=== PATIENT | male | born 1980 | race Hispanic/Latino ===

== ENCOUNTER 2020-08-09 11:52 | Outpatient (CLI) | payer SELFPAY ==
--- NOTE | ~2020-08-09 | XR_ITS ---
XR lumbar spine 2-3V DATE: 08/09/2020 12:02 INDICATION: Sciatica TECHNIQUE: AP, lateral and coned lateral lumbosacral views COMPARISON: 10/19/2012 CT and lumbar spine FINDINGS: Normal alignment of the lumbar spine with the exception of minimal retrolisthesis at L5-S1. There is mild degenerative disc disease at L3-4, L4-5 and L5-S1 primarily. No fracture or bone destruction is evident. Mild chronic anterior wedging of L1, stable since 10/20/19 13. The included lower thoracic and lumbar pedicles are intact. The sacroiliac joints are normal. Surgical clips, right upper quadrant, consistent with cholecystectomy IMPRESSION: Mild mid and lower lumbar degenerative disc disease Reviewed, dictated and finalized at location A.
== END 2020-08-09 11:53 | disposition home or self-care (01) ==
PROVIDERS: PCP Family Medicine; Visit Provider Family Medicine
DX: M54.30 Sciatica, unspecified side (principal); M51.36 Other intervertebral disc degeneration, lumbar region
CPT/HCPCS: 72100

== ENCOUNTER 2022-07-10 07:43 | Outpatient (CLI) | payer OTHER, SELFPAY ==
--- NOTE | ~2022-07-10 | MR_ITS ---
EXAMINATION: MR ankle RT wo con DATE: 07/10/2022 08:19 INDICATION: Right ankle sprain TECHNIQUE: Magnetic resonance imaging (MRI) of the right ankle was performed without intravenous cont rast. Sequences included sagittal, coronal, and axial proton-density weighted fast spin echo without and with fat saturation. COMPARISON: None. FINDINGS: Medial ankle ligaments: There is mild thickening and increased signal of the anterior half of the superficial deltoid ligamen t without a discrete discontinuity consistent with relatively recent moderate grade sprain. The more posterior superficial deltoid ligament, the deep deltoid ligament as well as the spring ligament are normal. Lateral ankle ligaments: The anterior and posterior inferior tibiofibular ligaments are normal. The anterior talofibular, calc aneofibular and posterior talofibular ligaments are normal. Tendons: Achilles tendon is normal. The peroneus longus and brevis tendons are normal. The tibialis anterior a nd extensor hallucis longus and extensor digitorum longus tendons are normal. The tibialis posterior, flexor digitorum longus and flexor hallucis longus tendons are normal. Plantar fascia: Plantar aponeurosis is normal. Bones/other: Bone alignment is normal. No fracture or pathologic marrow replacing process. Mild osteoarthritis wit h nonuniform joint space narrowing at the tibiotalar, talonavicular and second-fourth tarsal metatars al joints. There is mild chondral surface regularity along the medial side of the tibiotalar articula tion. There is thickening and mild increased signal of the bifurcate ligament as well as of the dorsa l ligaments at the talonavicular and lateral naviculocuneiform articulations consistent with addition al moderate grade sprains. Fluid: Physiologic amount fluid in the joint spaces. There is mild feathery muscular edema involving the ext ensor digitorum brevis consistent with low-grade strain. IMPRESSION: 1. Moderate grade sprains of the anterior superficial deltoid ligament, the bifurcate ligament and th e dorsal ligaments at the talonavicular and lateral naviculocuneiform articulations. 2. Low-grade strain of the extensor digitorum brevis. 3. Mild polyarticular osteoarthritis. Reviewed, dictated and finalized at location L. IMPRESSION: 1. Moderate grade sprains of the anterior superficial deltoid ligament, the bif urcate ligament and the dorsal ligaments at the talonavicular and lateral navic ulocuneiform articulations. 2. Low-grade strain of the extensor digitorum brevis. 3. Mild polyarticular osteoarthritis.
== END 2022-07-10 07:44 ==
LOC: MICIMG 07:44
PROVIDERS: PCP Family Medicine; Visit Provider Podiatrist Foot & Ankle Surgery
DX: S93.401A Sprain of unspecified ligament of right ankle, initial encounter (principal); X58.XXXA Exposure to other specified factors, initial encounter; M19.071 Primary osteoarthritis, right ankle and foot
CPT/HCPCS: 73721

== ENCOUNTER 2023-08-20 12:31 | Outpatient (CLI) | payer BC, SELFPAY ==
--- NOTE | 2023-08-20 14:10 | NEURO_ITS ---
Impression: # Complains of pain and numbness of hands. # Bilateral Carpal Tunnel Syndrome, sensory more than motor, right more than left. # No ulnar neuropathy. # Normal needle/EMG exam. Nerve Conduction Studies Anti Sensory Summary Table Stim Site NR Peak (ms) P-T Amp (?V) Site1 Site2 Delta-P (ms) Dist (cm) Dejon (m/s) Left Median Anti Sensory (2-3nd Digit) Wrist 3.6 20.7 Wrist 2-3nd Digit 3.6 14.0 39 Wrist 3.9 10.5 Wrist 2-3nd Digit 3.6 14.0 39 Right Median Anti Sensory (2-3nd Digit) Wrist 5.1 14.8 Wrist 2-3nd Digit 5.1 14.0 27 Wrist 5.5 17.5 Wrist 2-3nd Digit 5.1 14.0 27 Left Radial Anti Sensory (Base 1st Digit) Wrist 2.1 26.1 Wrist Base 1st Digit 2.1 0.0 Right Radial Anti Sensory (Base 1st Digit) Wrist 2.3 14.7 Wrist Base 1st Digit 2.3 0.0 Left Ulnar Anti Sensory (5th Digit) Wrist 2.3 14.5 Wrist 5th Digit 2.3 14.0 61 Right Ulnar Anti Sensory (5th Digit) Wrist 2.5 28.3 Wrist 5th Digit 2.5 14.0 56 Motor Summary Table Stim Site NR Onset (ms) O-P Amp (mV) Site1 Site2 Delta-0 (ms) Dist (cm) Dejon (m/s) Left Median Motor (Abd Poll Brev) Wrist 3.6 4.0 Elbow Wrist 5.5 29.0 53 Elbow 9.1 1.9 Right Median Motor (Abd Poll Brev) Wrist 3.4 3.7 Elbow Wrist 5.4 31.0 57 Elbow 8.8 1.8 Left Ulnar Motor (Abd Dig Minimi) Wrist 2.3 6.4 A Elbow Wrist 5.4 32.0 59 A Elbow 7.7 5.8 Right Ulnar Motor (Abd Dig Minimi) Wrist 2.2 8.1 A Elbow Wrist 5.3 31.0 58 A Elbow 7.5 6.5 F Wave Studies NR F-Lat (ms) L-R F-Lat (ms) Left Median (Mrkrs) (Abd Poll Brev) 30.63 1.03 Right Median (Mrkrs) (Abd Poll Brev) 31.65 1.03 Left Ulnar (Mrkrs) (Abd Dig Min) 28.96 0.18 Right Ulnar (Mrkrs) (Abd Dig Min) 29.14 0.18 EMG Side Muscle Nerve Root Ins Act Fibs Amp Dur Recrt Comment Right 1stDorInt Ulnar C8-T1 Nml Nml Nml Nml Nml Right Ext Indicis Radial (Post Int) C7-8 Nml Nml Nml Nml Nml Right Ext Digitorum Radial (Post Int) C7-8 Nml Nml Nml Nml Nml Right BrachioRad Radial C5-6 Nml Nml Nml Nml Nml Right PronatorTeres Median C6-7 Nml Nml Nml Nml Nml Right Abd Poll Brev Median C8-T1 Nml Nml Nml Nml Nml Right ABD Dig Min Ulnar C8-T1 Nml Nml Nml Nml Nml Left 1stDorInt Ulnar C8-T1 Nml Nml Nml Nml Nml Left Ext Indicis Radial (Post Int) C7-8 Nml Nml Nml Nml Nml Left Ext Digitorum Radial (Post Int) C7-8 Nml Nml Nml Nml Nml Left BrachioRad Radial C5-6 Nml Nml Nml Nml Nml Left PronatorTeres Median C6-7 Nml Nml Nml Nml Nml Left Abd Poll Brev Median C8-T1 Nml Nml Nml Nml Nml Left ABD Dig Min Ulnar C8-T1 Nml Nml Nml Nml Nml MTDD
== END 2023-08-20 12:32 | disposition home or self-care (01) ==
LOC: ANHNEURO 12:33
PROVIDERS: PCP Family Medicine; Visit Provider Physician Assistant
DX: R20.0 Anesthesia of skin (principal); R20.2 Paresthesia of skin; G56.03 Carpal tunnel syndrome, bilateral upper limbs
CPT/HCPCS: 95886; 95911

== ENCOUNTER 2023-09-25 18:19 | Emergency (ER) | payer BC, SELFPAY ==
--- NOTE | ~2023-09-25 | CT_ITS ---
EXAMINATION: CT lumbar spine wo con DATE: 09/25/2023 19:03 INDICATION: back pain, radiculopathy . TECHNIQUE: Computed tomography (CT) of the lumbar spine was performed without intravenous contrast. A utomated exposure control and iterative reconstruction technique were employed. The dose-length produ ct was 883.60 mGy-cm. COMPARISON: 10/19/2012; x-ray L-spine 08/09/2020. FINDINGS: 5 nonrib-bearing lumbar-type vertebral bodies. Pedicles intact. Normal vertebral body align ment. Vertebral body heights preserved. Multilevel mild marginal osteophytosis. Mild loss of disc hei ght at L4-5 and L5-S1, with mild diffuse disc bulges at these levels. 3 mm central protrusion/extrusi on inferiorly off the L5-S1 disc. Moderate bilateral neural foraminal narrowing at L4-5. Neural ingrid inal narrowing at L5-S1, moderate on the right and severe on the left. No severe central canal narrow ing. Mild multilevel facet arthropathy IMPRESSION: No acute fracture or traumatic malalignment in the lumbar spine. No severe central canal narrowing. Severe left neural foraminal narrowing at L5-S1 secondary to degenerative disc change. Moderate neura l foraminal narrowing bilaterally at L4-5 and on the right at L5-S1. Mild degenerative disc disease at L4-5 and L5-S1. 3 mm central protrusion/extrusion at L5-S1. Reviewed, dictated and finalized at location K. IMPRESSION: No acute fracture or traumatic malalignment in the lumbar spine. No severe central canal narrowing. Severe left neural foraminal narrowing at L5-S1 secondary to degenerative disc change. Moderate neural foraminal narrowing bilaterally at L4-5 and on the righ t at L5-S1. Mild degenerative disc disease at L4-5 and L5-S1. 3 mm central protrusion/extru donald at L5-S1.
[2023-09-25 18:21] VITALS: BP 157/99; PULSE 112; RESP 18; TEMP 36.3; O2SAT 97
--- NOTE | 2023-09-25 18:37 | ED.BACK ---
HPI - Back Pain/Injury General Chief Complaint: Back Pain/Injury Stated Complaint: back pain Time Seen by Provider: 09/25/23 18:20 History of Present Illness HPI Narrative: 43-year-old male presents to the emergency department for back pain for about a week and a half. Patient states the pain is throughout his low back. He describes it as a dull pain when he is at rest but it is sharp and stabbing when he is moving. States the pain radiates down the lateral aspect of both of his hips a and to the front of his thighs just above the knees. States it changes between each leg but right now the radiating pain is in his left leg. States the pain was somewhat improving after taking [id number] Aleve and icing, however the past day and half a became worse again which prompted him to come to the ED for further evaluation. He denies injury or trauma to his back or history of similar back pain. He denies numbness in his groin, urinary or bowel incontinence, urinary retention, fever, surgeries or procedures to his back, use of immunosuppressants, dysuria or hematuria, history of kidney stones. He does state that he is very active and plays golf and runs regularly. PMHx of low testosterone and B12 deficiency. Related Data Allergies Allergy/AdvReac Type Severity Reaction Status Date / Time No Known Allergies Allergy Unverified 07/11/23 11:35 Review of Systems Review of Systems: CONSTITUTIONAL: Denies fever, chills, or sweats. EYES: Denies visual changes, redness, or discharge. ENT: Denies rhinorrhea, congestion, sore throat, or otalgia. CARDIOVASCULAR: Denies chest pain, palpitations, or edema. RESPIRATORY: Denies cough or dyspnea. GASTROINTESTINAL: Denies abdominal pain, nausea, vomiting, or diarrhea. GENITOURINARY: Denies dysuria or hematuria. SKIN: Denies rash or itching. MUSCULOSKELETAL: See HPI NEUROLOGIC: Denies headache, numbness, or weakness. PSYCHIATRIC: Denies anxiety or depression. [facility] Family History Family History Other Diabetes mellitus Hypertension Social History Social History Social History: Smoking status: Smoker, status unknown Smokeless tobacco user: chewing tobacco Second hand tobacco smoke exposure: No Additional smoking assessment comments: CHEWS FOR 23 YRS Alcohol intake: current Drinks per week: 10 Substance use: never Substance use type: does not use Do You Feel Safe in your Home?: Yes Lack of Transportation: No Lack of Food: Never True Current Housing: I Have Housing Concerned About Future Housing: No Difficulty Paying Gas/Electric Bills: No Difficulty Paying for Meds: No Currently Unemployed: No Education: Don't Know Difficulty w/ Childcare or Family Care: No Living arrangements: with family Occupation/Education: occupation Gender identity (if verbalized by the patient): Male Sexual Orientation (if Verbalized by the Patient): Straight or Heterosexual Spiritual care concerns: No Exam Narrative: GENERAL: Well-appearing, well-nourished, and in no acute distress. HEAD: Normocephalic, atraumatic. NECK: Supple. BACK: No midline thoracic spinous tenderness, step-offs or deformities. Tenderness to the lumbar spine without step-offs, deformities. No overlying skin changes. Tenderness diffusely to the low back and paraspinous muscles without overlying skin changes. CHEST: Clear to auscultation. No respiratory distress. HEART: Regular rate and rhythm. No murmur heard. Normal peripheral pulses. ABDOMEN: Soft, nontender, nondistended, normal active bowel sounds. No CVA tenderness. EXTREMITIES: Normal range of motion. No edema. SKIN: Warm, dry, no rash. NEURO: No focal deficits. Alert and oriented x3. Dorsiflexion, plantar flexion, knee flexion and extension, hip flexion and extension 5/5 bilaterally. Sensation intact througho
[2023-09-25] MEDS: KETOROLAC 30 MG/ML VIAL (*BKC) IM (19:10)
[2023-09-25] MEDS: CYCLOBENZAPRINE HCL 10 MG TABLET PO (19:10)
[2023-09-25] MEDS: LIDOCAINE 5% PATCH 1 PATCH TRANSDERM (19:10)
[2023-09-25] MEDS: HYDROcodone/acetaminophen (*CRX) 5-325 MG TABLET 1 TAB PO (19:56)
[2023-09-25] MEDS: dexAMETHasone SOD PHOS INJ 10 MG/ML 1 ML VIAL IM (19:56)
== END 2023-09-25 20:05 | disposition home or self-care (01) ==
PROVIDERS: Emergency Provider Physician Assistant; PCP Family Medicine
DX: M54.16 Radiculopathy, lumbar region (principal); F17.220 Nicotine dependence, chewing tobacco, uncomplicated
CPT/HCPCS: 72131; 96372; 99284; A9270; J1100; J1885

== ENCOUNTER 2025-02-03 02:04 | Day surgery (SDC) | payer BC, SELFPAY ==
[2025-01-25 13:52] VITALS: BMI 37.6
--- NOTE | 2025-01-25 13:59 | PC.NURSE ---
[facility] has started construction of its new state of the art ER which will open Spring 2026. With this, we anticipate parking may be a challenge for some our surgical patients and families. Parking spaces are limited but are available for all Surgical, obstetrics, and ER patients sharing this lot. If you arrive and find you are having a hard time finding a parking space, please note that we understand the challenges, please drive around the hospital and park near Hospital Entrance 1. When you enter this entrance, you can ask a volunteer to direct or take you back to the surgical waiting area to check in. We appreciate everyone?s understanding of these expected challenges while we build for your future. Report to the Outpatient Waiting Room, entrance under the green pavilion located off [address], at time _0600_ on date _[id number]_. Planned Procedure Time: _0730_.? Time changes happen often and if your time is changed the preop area will call you the afternoon before. - You and your visitor will be asked to self-screen and do not enter if you have any COVID symptoms. Please call surgeon if you need to reschedule. - A mask is optional within the hospital at this time. - No food or drink from midnight until time of surgery and no smoking, or chewing tobacco (or any form of nicotine). No chewing gum, candy or mints. Take only the following medications with a SIP of water on the morning of surgery: ___None DO NOT STOP ANY OF YOUR OTHER PRESCRIPTION MEDICATIONS PRIOR TO SURGERY EXCEPT THE FOLLOWING Hold all vitamins and supplements for 3 days per anesthesiologist. Medications to discontinue per physician Date to take last dose Please no make-up, nail finnish, hairspray, perfume, deodorant, or body powder the day of surgery.? No jewelry (including any body piercings) or valuables the day of surgery, leave them at home.? Please take a shower or bath the night before, or the morning of, surgery with an antibacterial soap.? Wear comfortable, loose fitting clothing.? - Jewelry must be removed prior to entering the operating room.? Rings and piercings that are not removed may be cut off. - The hospital will not accept responsibility for valuables.? - Please leave all valuables, including medications, at home the day of surgery. If you are going home after surgery, a licensed armored car guard and driver must drive you home.? - NO public transportation without another adult if you receive anesthesia. - We recommend that an adult stay with you for 24 hours following discharge. - We also recommend that you do not drive, make important decision, drink alcoholic beverages, or take any drugs that were not prescribed by your health care provider for at least 24 hours after your discharge time. Follow any additional instructions given to you from your surgeon. Telephone instructions given to __Dan__and asked if any additional questions and then verbalized understanding. Patient advised to call surgeon office or pre surgery nurse liaison [phone] if any additional questions.
--- OUTSIDE RECORDS SUMMARY | 2025-02-03 02:08 | XMS_ITS | Clinical Summary ---
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 Name Role Phone None, Provider Primary Care Provider Unavaila ble Allergies No known active allergies Encounters Date Type Department Care Team Description 12/16/2024 10:25 PM CDT - 12/17/2024 1:16 AM CDT Emergency [facility] [place] [address] Kristi Heath PA Chest Pain; Shortness Of Breath Discharge Disposition: Home or Self Care (Routine Discharge) 12/16/2024 Travel from Last 3 Months Social History Tobacco Use Types Packs/Day Years Used Date Smoking Tobacco: Never Smokeless Tobacco: Current Chew Tobacco Cessation:Ready to Q uit: Not Asked; Counseling Given: Not Answered Alcohol Use Standard Drinks/Week Comments Yes 0 (1 standard drink = 0.6 oz pur e alcohol) socially Sex and Gender Information Value Date Recorded Sex Assigned at Male 12/16/2024 9:31 PM CDT Legal Sex Male 7:30 PM CDT Gender Identity Not on file Sexual Orientation Not on file Last Filed Vital Signs Vital Sign Reading Time Taken Comments Blood Pressure 169/95 12/16/2024 9:17 PM CDT Pulse 62 12/16/2024 9:17 PM CDT Temperature 36.3 C (97.3 F) 12/16/2024 9:17 PM CDT Respiratory Rate 18 12/16/2024 9:17 PM CDT Oxygen Saturation 96% 12/16/2024 9:17 PM CDT Inhaled Oxygen Concentration - - Weight 108.9 kg (240 lb) 12/16/2024 9:17 PM CDT Height 172.7 cm (5' 8) 12/16/2024 9:17 PM CDT Body Mass Index 36.49 12/16/2024 9:17 PM CDT Plan of Treatment Health Maintenance Due Date Last Done Comments Annual Physical 07/10/1983 Hepatitis C 1998 DTaP, Tdap and Td Vaccines ( 1 - Tdap) 07/10/1999 Hepatitis B Vaccines (1 of 3 - 19+ 3-dose series) 07/10/1999 HPV Vaccines (1 - 3-dose SCD M series) 07/10/2007 COVID-19 Vaccine ( - 2024-2 6 season) 2024 08/30/2020, 08/09/2020 Influenza Adult (#1) 2025 Meningococcal B Vaccine Aged Out No l onger eligible based on patient's age to complete this topic Meningococcal Vaccine Aged Out No olga deepthi eligible based on patient's age to complete this topic Pneumococcal Vaccine: Pediatrics (0 to 5 Years) and At-Risk Patients (6 to 49 Years) Aged Out No longer eligible b ased on patient's age to complete this topic RSV Immunizations Under 20 Months Aged Out No longer eligible b ased on patient's age to complete this topic Procedures Procedure Name Priority Date/Time Associated Diagnosis Comments TROPONIN, QUANT STAT 12/16/2024 11:39 PM CDT ECG 12-LEAD STAT 12/16/2024 11:33 PM CDT XR CHEST PORTABLE STAT 12/16/2024 9:4 2 PM CDT LIPASE STAT 12/16/2024 9:28 PM CDT TROPONIN, QUANT STAT 12/16/2024 9:28 PM CDT COMPREHENSIVE METABOLIC PANEL STAT 12/16/2024 9:28 PM CDT CBC W/DIFF AUTOMATED STAT 12/16/2024 9:28 PM CDT ECG 12-LEAD STAT 12/16/2024 9:23 PM CDT from Last 3 Months Results * TROPONIN, QUANT (12/16/2024 11:39 PM CDT) Only the most recent of2 resultswithin the time period is included. TROPONIN I HIGH SENSITIVITY 3 <79 ng/L 12/17/2024 12:[address] [facility] Comment: HIGH DOSES OF BIOTIN, TROPONIN-SPECIFIC AUTOANTIBODIES, AND ANTIBODY THERAPY CONTAINING HAMA MAY INTERFERE WITH THIS TEST RESULT. CORRELATION TO CLINICAL HISTORY AND PRESENTATION RECOMMENDED. 12/16/2024 11:3 9 PM CDT us [facility] Final Result [facility] [address] [place] [address], [place] [phone] * ECG 12 lead (12/16/2024 11:33 PM CDT) Only the most recent of2 resultswithin the time period is included. 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 : 1980 Requested By: KRISTI HEATH Order Number: [id number] Reading MD: Arlin Bobby Measurements Intervals Eden Rate: 59 P: 45 PA: 198 QRS: -8 QRSD: 92 T: 17 QT: 386 QTc: 382 Interpretive Statements SINUS BRADYCARDIA Procedure Note Arlin Bobby MD - 12/17/2024 [address] [place] Test Date: 2024-12-16 Pat Name: HUAN POLO Department: 41 Room: JENNY Gender: Male 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 No acute cardiopulmonary process is identified. Ordered By: KRISTI HEATH Interpreted By: Ted Scott MD, 12/16/2024 10:07 PM Narrative 12/16/2024 10:08 PM CDT [address] [address] PROCEDURE: XR CHEST PORTABLE. 12/16/2024 9:22 PM. TECHNIQUE: A single view of the chest (AP or PA) was performed. HISTORY: Chest pain. COMPARISON: PA and lateral chest radiograph, 06/27/2015. FINDINGS: Support Devices: None. Cardiac Silhouette/Mediastinum/Alley: The cardiac, mediastinal, and hilar contours are unchanged in appearance. Lungs/Pleural Spaces: No focal consolidation. The pleural spaces are clear Chest Wall/Diaphragm/Upper Abdomen: The thoracic musculoskeletal structures and the upper abdomen are unchanged in appearance. Procedure Note Ted Scott MD - 12/16/2024 [facility] [address] [place], [place] [address] PROCEDURE: XR CHEST PORTABLE. 12/16/2024 9:22 PM. TECHNIQUE: A single view of the chest (AP or PA) was performed. HISTORY: Chest pain. COMPARISON: PA and lateral chest radiograph, 06/27/2015. FINDINGS: Support Devices: None. Cardiac Silhouette/Mediastinum/Alley: The cardiac, mediastinal, and hilarcontours are unchanged in appearance. Lungs/Pleural Spaces: No focal consolidation. The pleural spaces areclear Chest Wall/Diaphragm/Upper Abdomen: The thoracic musculoskeletalstructures and the upper abdomen are unchanged in appearance. IMPRESSION: 1. No acute cardiopulmonary process is identified. Ordered By: KRISTI HEATH Interpreted By: Ted Scott MD, 12/16/2024 10:07 PM Kristi Heath PA GENERAL IMAGING Final Result * (ABNORMAL) COMPREHENSIVE METABOLIC PANEL (12/16/2024 9:28 PM CDT) GLUCOSE 97 70 - 99 MG/DL 12/16/2024 10:[address] [facility] BUN 13 7 - 18 MG/DL 12/16/2024 10:[address] [facility] CREATININE S/P/B 1.36(H) 0.7 - 1.3 MG/DL 12/16/2024 10:[address] [facility] SODIUM S/P/B 138 136 - 145 MMOL/L 12/16/2024 10:07 [address] [facility] POTASSIUM S/P/B 3.8 3.5 - 5.1 MMOL/L 12/16/2024 10:[address] [facility] CHLORIDE S/P/B 104 97 - 115 MMOL/L 12/16/2024 10:07 PM [address] [facility] CO2 27.4 21 - 32 MMOL/L 12/16/2024 10:[address] [facility] CALCIUM S/P/B 9.9 8.5 - 10.1 MG/DL 12/16/2024 10:[address] [facility] BILIRUBIN TOTAL S/P/B 0.5 0.2 - 1.2 MG/DL 12/16/2024 10:07 PM [address] [facility] Comment: THIS ASSAY IS NOT RECOMMENDED FOR PATIENTS UNDERGOING TREATMENT WITH ELTROMBOPAG DUE TO THE POTENTIAL FOR FALSELY ELEVATED RESULTS. TOTAL PROTEIN S/P/B 7.7 6.4 - 8.2 G/DL 12/16/2024 10:[address] [facility] ALBUMIN S/P/B 4.1 3.4 - 5.0 G/DL 12/16/2024 10:[address] [facility] AST 33 15 - 37 U/L 12/16/2024 10:[address] [facility] ALT 66(H) 16 - 60 U/L 12/16/2024 10:[address] [facility] ALKALINE PHOSPHATASE S/P/B 47(L) 50 - 136 U/L 12/16/2024 10:[address] [facility] ANION GAP 6.6 2 - 10 MMOL/L 12/16/2024 10:[address] [facility] BUN CREATININE RATIO 9.6 6 - 26 12/16/2024 10:[address] [facility] A/G RATIO 1.1 1.0 - 2.0 RATIO 12/16/2024 10:[address] [facility] GFR ESTIMATE 66(L) >90 ML/MIN/1.7 3 M2 12/16/2024 10:07 PM [address] [facility] Comment: NOTE: eGFR is not calculated for patients <18 years of age or gender unknown. This is an estimated GFR calculation using the new CKD EPI creatinine equation without race and so does not require a correction factor for race. This estimated GFR should not be used for calculating drug doses. 12/16/2024 9:28 PM CDT [facility] Final Result [facility] [address] [place] [address], * (ABNORMAL) CBC W/DIFF AUTOMATED (12/16/2024 9:28 PM CDT) WBC 10.24 4.5 - 11.0 x10'3/uL 12/16/2024 9:47 PM [address] [facility] RBC 5.65 4.70 - 6.10 x10'6/uL 12/16/2024 9:47 PM CDT [facility] HGB 17.4 14.0 - 18.0 G/DL 12/16/2024 9:47 PM CDT [facility] HCT 47.9 43.0 - 54.0 % 12/16/2024 9:47 PM [address] [facility] MCV 84.8 80.0 - 94.0 FL 12/16/2024 9:47 PM [address] [facility] MCH 30.8 27.0 - 31.0 PG 12/16/2024 9:47 PM CD[address] [facility] MCHC 36.3(H) 32.0 - 36.0 G/DL 12/16/2024 9:47 PM [address] [facility] RDW 12.4 11.5 - 14.5 % 12/16/2024 9:[address] [facility] PLT 204 130 - 400 x10'3/uL 12/16/2024 9:47 PM [address] [facility] MPV 9.1(L) 9.3 - 12.2 FL 12/16/2024 9:47 [address] [facility] DIFFERENTIAL TYPE AUTOMATED DIFFERENTIAL 12/16/2024 9:47 PM CDT [facility] NEUTROPHILS % 63.5 % 12/16/2024 9:47 [address] [facility] LYMPHOCYTES % 26.8 % 12/16/2024 9:47 PM [address] [facility] MONOCYTES % 7.6 % 12/16/2024 9:47 PM [address]T [facility] EOSINOPHILS 1.2 % 12/16/2024 9:47 PM [address] [facility] BASOPHILS 0.5 % 12/16/2024 9:47 [address] [facility] IMMATURE GRANS % 0.4 % 12/17/19 9:[address] [facility] ABS. NEUTROPHILS 6.51 1.80 - 7.70 x10'3/uL 12/16/2024 9:[address] [facility] ABS. LYMPHOCYTES 2.74 1.00 - 4.80 x10'3/uL 12/16/2024 9:47 [address] [facility] ABS. MONOCYTES 0.78 0.30 - 0.82 x10'3/uL 12/16/2024 9:47 PM [address] [facility] ABS. EOSINOPHILS 0.12 0.04 - 0.54 x10'3/uL 12/16/2024 9:47 PM [address] [facility] ABS. BASOPHILS 0.05 0.01 - 0.08 x10'3/uL 12/16/2024 9:47 PM [address] [facility] ABS. IMMATURE GRANULOCYTES 0.04 0.00 - 0.49 x10'3/uL 12/16/2024 9:[address] [facility] 12/16/2024 9:28 PM CDT [facility] Final Result [facility] [address] [place] [address], [place] [phone] * LIPASE (12/16/2024 9:28 PM CDT) LIPASE 39 13 - 75 UNITS/L 12/16/2024 10:[address] [facility] 12/16/2024 9:28 PM CDT [facility] Final Result Performing Organization Address [facility] Co de Phone Number [facility] [address] [place] [address], [place] [phone] from Last 3 Months Insurance Care Teams Senior Mechanical Development Engineer Relationship Specialty Start Date End Date None, Provider, PCP - General UNKNOWN PHYSICIAN SPECIALTY 12/16/24
--- OUTSIDE RECORDS SUMMARY | 2025-02-03 02:08 | XMS_ITS | Data Portability ---
Author Organization [employer], [facility] Address [address] [address] Assessment No assessment recorded. Plan of Treatment Reminders Order Date Submit Date Provider Last Modified By Organization Details Last Modified Time Details Appointments None recorded. Lab PSA, serum or plasma - Screening PSA 2018 019 [email or web address] Not available 9 05:39:48 CBC w/ auto diff 2018 019 [email or web address] Not available 9 05:39:48 vitamin D, 25-hydroxy, total, serum 2018 019 [email or web address] Not available 9 05:39:48 testosteron e, free, serum 2018 019 [email or web address] Not available 9 05:39:48 testosteron e, total, serum 2018 019 [email or web address] Not available 9 05:39:48 Referral None recorded. Procedures None recorded. Surgeries None recorded. Imaging XR, shoulder 2018 019 [email or web address] Not available 9 05:39:48 US, upper extremity, nonvascular 2018 019 [email or web address] Not available 9 16:18:58 Medication Orders cephalexin 500 mg capsule 2018 019 [email or web address] Not available 9 05:39:48 diazepam 10 mg tablet 2018 019 [email or web address] Not available 9 05:39:48 Patient TargetsNo targets recorded. Patient Instructions Encounter Date Encounter Id Patient Instructions Last Modified By Organization Details Last Modified Time 12/10/2018 [id number] shoulder pain: c are instructions Not available 12/11/2018 05:39:48 After review of radiographic and examination findings, we discussed treatment options available. These included corticosteroid injection,bracing, observation, surgical referral, physical therapy, pain management, and/or stem cell treatment. The patient is definitely interested in non-surgical alternatives. If they choose to undergo stem cell biologic treatment, it is understood that it is considered investigational and off label use of the product by FDA, that it is not a covered benefit by insurance, and that there is no guarantee of symptom improvement. We reviewed the stem cell treatment and depth. Information packet was given to and reviewed with the patient. All questions were answered related to the procedure, post procedure expectations, and cost associated with treatment. We also discussed that sometimes more than one biologic treatment is required to attain desired efficacy. If opting to undergo biologic treatment, an order was given for laboratory studies to be completed. They will call our office if they desire to schedule an appointment for treatment or review any of the other treatment options discussed. Patient will also RTC or call for any worsening, questions or concerns prn. We did discuss proceeding with an MRI examination with contrast to the shoulder. He is interested in proceeding with biologic treatment and bypassing the MRI examination. Not available 12/15/2018 05:25:52 Reason for Referral None Reported. Problems No Known Problems Medical Equipment None Reported. Allergies No known drug allergies Medications Name Sig Start Date Stop Date Status Note LastModified by Organization Details LastModified Time amoxicillin 500 mg capsule active Not Available Not Available Not Available cephalexin 500 mg capsule Take 4 capsules (total of 2g) po one hour prior to procedure. One time dose. 2018 active Not Available Not Available Not Avai lable mupirocin 2 % topical ointment active Not Available Not Available Not Available diazepam 10 mg tablet Take 1 tablet(s) 30 mins PRIOR to appointment PRN and repeat as directed by physician. 2018 active Not Available Not Available Not Avai lable fluticasone propionate 50 mcg/actuatio n nasal spray,suspen donald active Not Available Not Available Not Available Vitals Date Recorded Body height Body mass index (BMI) Body weight Heart rate Systolic And Diastolic Provider Name and Address Organization Details Last Updated DateTime 12/10/2018 172.72 cm 30.4 kg/m2 59868.47 g 76 /min 137/67 mm[Hg] José Miguel Brown [facility] [employer] 12/10/2018 15:29:02 Social History Question Answer Notes LastModified by [employer] Details LastModified Time Tobacco Smoking Status Never Smoker José Miguel Brown jamil [facility] 12/10/2018 15:29:24 Live Alone Or With Others? With Others [email or web address] Information not available 12/10/2018 Marital Status Informatio n not available 12/10/2018 What Types Of Sporting Activities Do You Participate In? Lifting Weights And Baseball [email or web address] Information not available 12/10/2018 General Stress Level Medium [email or web address] Information not available 12/10/2018 Sex: Unknown Functional Status Question Answer Note LastModified by [employer] Details LastModified Time What is your level of alcohol consumption? 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 Moderate [email or web address] Information not available 12/10/2018 Mental Status None recorded. Family History Relationship Description Onset Age of this Age Resolved Age Notes LastModified by Organization Details LastModified Time Father No current problems or disability [email or web address] Not available 12/10 15:29:18 Mother No current problems or disability [email or web address] Not available 12/10 15:29:18 Medical History Condition Response HIV or AIDS N Coronary Artery Disease N Gout N Kidney Stones N Hyperthyroidism N Head Trauma/Injury N Hernia N Hypothyroidism N Lung Disease N Blood Clots N COPD N Depression N Pacemaker N Anxiety Disorder N Arthritis N Cancer N Stroke N Leg or Foot Ulcers N Neck Injury N High Cholesterol N Liver Disease N Rheumatoid Arthritis N Fibromyalgia N Headaches N Kidney Disease N Heart Problems N Migraines N Thyroid Problems N Anemia N Multiple Sclerosis N Tendon Tear N Ulcers N Heart Attack (PA) N Diabetes N Bleeding Disorder N Seizures/Epilepsy N Tuberculosis N Urinary Tract Infection N Back Problems N Diverticulitis N Asthma N Lupus N Peripheral Vascular Disease N Sleep Disorder N GERD/Reflux N Hepatitis N Aneurysm N Heart Disease N Pulmonary Embolism N Hypertension N Osteoporosis N Past Encounters Encounter ID Performer Location Encounter Start Date Encounter Closed Date Diagnosis/Indication Diagnosis SNOMED-CT Code Diagnosis ICD10 Code Diagnosis IMO Codes Diagnosis Note [id number] aCrol Argueta MD [facility] 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 Malaise and fatigue 2717 37875 R53.83 Z12.5 M89.9 M94.9 R53.81 Antibiotic prophylaxis indicated 654611326 Z78.9 Anxiety 44182068 F41.9 Glenoid labrum tear 2023 24653 S43.431A Partial th ickness rotator cuff tear 403136676 M75.101 Health Concerns Section Related Observation LastModified by Organization [employer] LastModified Time None Recorded Concern Status LastModified by Organization Details LastModified Time None Recorded Advance Directives Directive None Recorded Payers Insurance Date Sequence Insurance Name Policy Number Policy Arteaga Covered Member ID Arteaga Member ID Guarantor Name 12/15/2018 1 [employer] (PPO) [id number] Huan Wynne [id number] Huan Wynne Notes Date Note Type Note Provider Name and Address Organization Details Recorded Time 12/10/2018 text/html Huan is a pleasant 38-year-old aaqgz-kvsb-paksfpm t male who presents to our clinic today for evaluation of his chronic right shoulder pain. He has had problems with his right shoulder for the past 10 years. There is no definite mechanism of injury, however he is very active in lifting weights 5 times a week and playing baseball in and independently. He typically plays [employer], but has had to change position secondary to the progressive pain. Over the past year the pain has been more pronounced. He describes it as an intermittent sharp stabbing pain with a periodic pop and giving way of the shoulder. He does notice some loss with range of motion especially when trying to reach behind his back. He has no issues with overhead Range of motion other than pain. His pain is mostly over the anterior aspect of the shoulder, but he does get some pain and weakness posteriorly. At its worst the pain is at a 4 out of 10 with lifting, but can get worse Anti-inflammatory medications have helped to moderate his symptoms, but he continues to have difficulty with pain and weakness with his workouts and on the ball field. 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 A friend of his that he plays baseball with his undergone treatment in our clinic, and recommended that he see us for evaluation and possible treatment. Specifically, he is here today to discuss the possibility of stem-cell biologic treatment. He is not wanting to proceed with any surgical intervention for the shoulder. TAYO Vigil - [facility], [facility] 12/15/2018 05:26:43
--- OUTSIDE RECORDS SUMMARY | 2025-02-03 02:08 | XMS_ITS | Clinical Summary ---
Author Organization [facility] Address [address] [place] [address] Care Team Providers Care Collar Folder Operator Name Role Phone Alli Rowley MD Primary Care Provider Allergies No known active allergies Medications diazePAM (VALIUM) 10 mg tablet diazepam 10 mg tablet Take 1 tablet(s) 30 mins PRIOR to appointment PRN and repeat as directed by physician. Active fluticasone propionate (FLONASE) 50 mcg/actuation nasal spray fluticasone propionate 50 mcg/actuation nasal spray,suspension Active ibuprofen (ADVIL,MOTRIN) 800 mg tablet Take 800 mg by mouth every 6 (six) hours as needed for pain Active Active Problems No known active problems Surgical History Surgery Date Site/Laterality Comments FLUORO GUIDED INJECTION SHOULDER RIGHT 12/29/2019 Ri ght Social History Tobacco Use Types Packs/Day Years Used Date Smoking Tobacco: Never Smokeless Tobacco: Never Personal Safety Answer Date Recorded Getting School Help Needed Not on file 07/11 Sex and Gender Information Value Date Recorded Sex Assigned at Not on file 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 Gender Identity Not on file Sexual Orientation Not on file Obstetrics History Last Filed Vital Signs Vital Sign Reading Time Taken Comments Blood Pressure 138/84 12/29/2019 4:41 PM CDT Pulse 51 12/29/2019 4:41 PM CDT Temperature 36.6 C (97.9 F) 12/29/2019 4:00 PM CDT Respiratory Rate 16 12/29/2019 4:00 PM CDT Oxygen Saturation 98% 12/29/2019 4:41 PM CDT Inhaled Oxygen Concentration - - Weight 99.8 kg (220 lb) 08/10/2013 11:15 AM CDT Height 170.2 cm (5' 7) 08/10/2013 11:15 AM CDT Body Mass Index 34.46 08/10/2013 11:15 AM CDT Plan of Treatment Not on file Insurance ALLIED BENEFITS [employer] HUMANA CLAIMS OFFICE ALLIED BENEFITS [employer] Care Teams Collar Folder Operator Relationship Specialty Start Date End Date Alli Rowley MD [address] [facility] [address] [place] [address] PCP - General 03/27/16
[2025-02-03] MEDS: LACTATED RINGERS 1,000 ML 30 ML IV CONT (06:30)
[2025-02-03] MEDS: ACETAMINOPHEN 500 MG TABLET 1000 MG PO (06:35)
--- NOTE | 2025-02-03 06:52 | P.HPUP_ITS ---
History and Physical Update Update Date/Time: 02/03/25 06:52 Patient seen and examined in pre-operative holding area. No interval change in medical history or symptoms. Patient recalls previous discussion of benefits and alternatives to procedure. Continues to desire to proceed with left endoscopic possible open carpal tunnel release, Left middle and ring finger a1 hilary release and left 2nd/3rd extensor compartment/tendon release . Reviewed procedure, post-op expectations and risks including but not limited to bleeding, infection, injury to tendon/nerve/vessel, decreased hand function, stiffness, RSD, no change or worsening of symptoms. I discussed the possible use of dottie bryant and their participation in the case. Patient stated understanding and signed the consent form wishing to proceed.
--- NOTE | 2025-02-03 06:53 | P.OP_ITS ---
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 The patient signed the consent form. PROCEDURE IN DETAIL:The patient taken back to OR on the stretcher in supine position. Time out performed with anesthesia, surgeon and staff agreeing on patient's name site and surgery to be performed SCDs were placed on the lower extremities and inflated. A tourniquet was placed on {left} upper extremity and antibiotics given IV After anesthesia administered sedation I injected {10}cc 1%lido with epi and 0.5% marcaine plain at the operative sites The?{left upper extremity}?was prepped and draped in sterile fashion the??{left upper extremity} was? exsanguinated with Esmarch bandage and tourniquet inflated to 250mmHg I made a transverse incision in the {left} volar distal wrist crease through skin and dermis with 15 blade scalpel.? Karir scissors spread down to antebrachial fascia. A small incision was made in antebrachial fascia allowing access to Carpal tunnel. I proceeded with sequential dilation staying in line with the ring finger and hugging the hook of the hamate.? I then used the synovial elevator to free any adhesions from the underside of the transverse carpal ligament. There was notable synovitis within the carpal tunnel that made iniitial viualization difficult and required multiple attempts at visualization with the camera requirig me to extend my inciion distally towards wrist flexion crease to improve direct visual exposure and protect nerve during procedure. Next I was able to insert the Microaire endoscopic carpal tunnel device with direct visualization of the transverse fibers on the monitor and proceeded with complete segmental retrograde release of the ligament in its entirety.? I irrigated with normal saline and closed with 4-0 monocryl for dermis and subcuticular closure. Next I proceeded with making a longitudinal incision over the left middle finger A1 hilary through skin and dermis with a 15 blade scalpel. Littler scissors were used to spread to subcutaneous tissue down to the A1 hilary. The A1 hilary was identified and initially incised with 15 blade scalpel. Littler scissors were used to spread above and below it proximally and distally completing the transection entirely. Ragnell retractor was used to withdraw the FDS and FDP tendons for inspection. The tendons were free of masses and synovitis and gliding smoothly in the sheath without triggering or crepitus. Irrigated with normal saline and closed with 4-0 chromic. Next I proceeded with making a longitudinal incision over the left ring finger A1 hilary through skin and dermis with a 15 blade scalpel. Littler scissors were used to spread to subcutaneous tissue down to the A1 hilary. The A1 hilary was identified and initially incised with 15 blade scalpel. Littler scissors were used to spread above and below it proximally and distally completing the transection entirely. Ragnell retractor was used to withdraw the FDS and FDP tendons for inspection. The tendons were free of masses and synovitis and gliding smoothly in the sheath without triggering or crepitus. Irrigated with normal saline and closed with 4-0 chromic. Next I took my attention to the dorsum of the wrist where I made a longitudinal incision over Melania's tubercle through skin and dermis with a 15 blade scalpel. Littler scissors were used to spread down to the extensor retinaculum. I incised the retinaculum in this area and then proceeded with releasing the extensor pollicis longus and extensor carpi radialis longus and brevis compartments. These compartments were notably tight. There is no significant synovitis present there was fluid within the S sheaths. I irrigated with normal saline and closed with 3-0 Vicryl for dermis and 4-0 Monocryl for subcuticular closure. A dressing of Dermabond in the wrist and xeroform in the palm, 4x4, lida, and a volar splint was applied for patient safety, security, and comfort and secured with an keke bandage after the tourniquet was let down noting the hand was warm and well perfused. The patient was then awaken from anesthesia and transferred to the recovery room in stable condition.? Complications - none EBL- 0cc Disposition - home in stable condition Maciel Benoit PA-C was essential for positioning, retraction, closure and dressing placement [facility] Billing Surgery - Charge Forward: Surgery Billing ([id number] same for maciel adding )
--- NOTE | 2025-02-03 07:02 | WPDANESEPPF ---
Anes - Initial Pre Proc Eval Procedure: Operation Date: 02/03/25 07:30 Proposed Procedures p Left Endoscopic Carpal Tunnel Release, Possible Open - Azul Dickerson MD s Left Middle and Ring A-1 Jovan Release, Left Extensor Tendon Release - Azul Dickerson MD Date/Time: 02/03/25 07:02 Surgeon: Azul Dickerson MD Pre Op Diagnosis: left carpal tunnel syndrome, Patient Data Age: 44 Gender: M Height: 1.7 m Weight: 109 kg Allergies Allergy/AdvReac Type Severity Reaction Status Date / Time No Known Allergies Allergy Verified 02/03/25 06:43 Home Medications ?Medication ?Instructions ?Recorded ?Confirmed ?Type No Home Medications 01/25/25 01/25/25 History Patient hx anesthesia problems: none Family hx anesthesia problems: none Results Review: All pre-operative results and documents have been reviewed as part of the pre-operative evaluation. COUNT INCLUDES THE [facility] Past Medical History Medical History JOHANA (obstructive sleep apnea) Family History Family History Other Diabetes mellitus Hypertension Social History Social History Social History: Smoking status: Smoker, status unknown Smokeless tobacco user: chewing tobacco Second hand tobacco smoke exposure: No Additional smoking assessment comments: CHEWS FOR 23 YRS Alcohol intake: current Drinks per week: 10 Substance use: never Substance use type: does not use Do You Feel Safe in your Home?: Yes Lack of Transportation: No Lack of Food: Never True Current Housing: I Have Housing Concerned About Future Housing: No Difficulty Paying Gas/Electric Bills: No Difficulty Paying for Meds: No Currently Unemployed: No Education: Don't Know Difficulty w/ Childcare or Family Care: No Living arrangements: with family Occupation/Education: occupation Gender identity (if verbalized by the patient): Male Sexual Orientation (if Verbalized by the Patient): Straight or Heterosexual Spiritual care concerns: No Anes - Eval Final PreProcedure Day of Procedure 02/03/25 07:02 Patient weight: obese Heart: regular rate and rhythm Lungs: clear to auscultation Airway: Mallampati scale class II Neurological: alert and oriented Last oral intake: >/= 8 hours ASA classification: III Emergent: no Anesthetic plan: proceed Anesthesia type and monitoring: general GIVS and standard monitoring Results Review: All pre-operative results and documents have been reviewed as part of the pre-operative evaluation. Informed Consent: The patient's anesthetic plan and its attendant risks and benefits were discussed with the patient/family/POA. Questions were solicited and answers provided to the satisfaction of the patient/family/POA.
[2025-02-03 07:05] VITALS: BP 151/97; PULSE 67; TEMP 37.1; O2SAT 97; BMI 38.6
[2025-02-03] MEDS: ceFAZolin 2 GM in SODIUM CHLORIDE 0.9% IV 50 ML 100 ML IVPB (07:30)
[2025-02-03] MEDS: BUPivacaine HCL 0.5% 10 ML AMP INFILTRATE (07:35)
[2025-02-03] MEDS: LIDO 1%/EPINEPHRINE 1:100,000 50 ML VIAL 10 ML INFILTRATE (07:35)
[2025-02-03] MEDS: BACITRACIN OINTMENT 15 GM TUBE 1 APPLIC TOPICAL (08:18)
[2025-02-03 08:25] VITALS: BP 128/72; PULSE 80; RESP 20; O2SAT 94
[2025-02-03 08:45] VITALS: BP 137/98; PULSE 70; RESP 18; O2SAT 100
[2025-02-03 09:05] VITALS: BP 145/85; PULSE 63; RESP 18
== END 2025-02-03 09:15 | disposition home or self-care (01) ==
PROVIDERS: PCP Family Medicine; Visit Provider Plastic Surgery
PROC: 01N54ZZ Release Median Nerve, Percutaneous Endoscopic Approach (ICD-10-PCS; CPT 29848; principal; 2025-02-03 07:30)
PROC: (CPT 26055; 2025-02-03 07:30)
DX: G56.02 Carpal tunnel syndrome, left upper limb (principal); M65.332 Trigger finger, left middle finger; M65.342 Trigger finger, left ring finger; M65.842 Other synovitis and tenosynovitis, left hand; G47.33 Obstructive sleep apnea (adult) (pediatric); F17.220 Nicotine dependence, chewing tobacco, uncomplicated; E66.9 Obesity, unspecified; Z68.38 Body mass index [BMI] 38.0-38.9, adult
CPT/HCPCS: 29848; 26055 ×2; 25000; J0690; A9270; J2003; J2004; J2250; J2704; J3010; J7120